=== PATIENT | male | born 1950 | race Caucasian/White ===

== ENCOUNTER 2023-07-29 12:56 | Outpatient (RCR) | payer MEDICARE, OTHER, SELFPAY | END 2023-07-29 23:59 | disposition home or self-care (01) | LOC: RPT 12:56 | PROVIDERS: ATTENDING PHYSICIAN Student in an Organized Health Care Education/Training Program; FAMILY PHYSICIAN Internal Medicine | DX: S86.011D Strain of right Achilles tendon, subsequent encounter (principal); Z73.6 Limitation of activities due to disability | CPT/HCPCS: 97110; 97162 ==

== ENCOUNTER → 2023-08-20 06:28 | Day surgery (SDC) | payer MEDICARE, OTHER, SELFPAY ==
[2023-08-20 08:00] LABS: Glucose - Point of Care 130 mg/dl (70-99)
== END ==
LOC: GI 06:28
PROVIDERS: ATTENDING PHYSICIAN Internal Medicine Gastroenterology
DX: K31.7 Polyp of stomach and duodenum (principal); R10.13 Epigastric pain; K31.89 Other diseases of stomach and duodenum
CPT/HCPCS: 43251; 88305; 82962; 88342

== ENCOUNTER 2023-08-25 11:00 | Outpatient (RCR) | payer MEDICARE, OTHER, SELFPAY | END 2023-08-25 23:59 | disposition home or self-care (01) | LOC: RPT 11:00 | PROVIDERS: ATTENDING PHYSICIAN Student in an Organized Health Care Education/Training Program; FAMILY PHYSICIAN Internal Medicine | DX: S86.011D Strain of right Achilles tendon, subsequent encounter (principal); Z73.6 Limitation of activities due to disability | CPT/HCPCS: 97110; 97112; 97116; 97530 ==

== ENCOUNTER 2023-09-22 14:02 | Outpatient (RCR) | payer MEDICARE, OTHER, SELFPAY | END 2023-09-22 23:59 | disposition home or self-care (01) | LOC: RPT 14:02 | PROVIDERS: ATTENDING PHYSICIAN Student in an Organized Health Care Education/Training Program; FAMILY PHYSICIAN Internal Medicine | DX: S86.011D Strain of right Achilles tendon, subsequent encounter (principal); Z73.6 Limitation of activities due to disability; R26.89 Other abnormalities of gait and mobility | CPT/HCPCS: 97110; 97530 ==

== ENCOUNTER 2023-10-22 10:54 | Outpatient (RCR) | payer MEDICARE, OTHER, SELFPAY | END 2023-10-22 23:59 | disposition home or self-care (01) | LOC: RPT 10:54 | PROVIDERS: ATTENDING PHYSICIAN Student in an Organized Health Care Education/Training Program; FAMILY PHYSICIAN Internal Medicine | DX: S86.011D Strain of right Achilles tendon, subsequent encounter (principal); Z73.6 Limitation of activities due to disability; R26.89 Other abnormalities of gait and mobility; M62.81 Muscle weakness (generalized) | CPT/HCPCS: 97110; 97112; 97530 ==

== ENCOUNTER 2023-11-25 11:19 | Outpatient (RCR) | payer MEDICARE, OTHER, SELFPAY | END 2023-11-25 23:59 | disposition home or self-care (01) | LOC: RPT 11:19 | PROVIDERS: ATTENDING PHYSICIAN Student in an Organized Health Care Education/Training Program; FAMILY PHYSICIAN Internal Medicine | DX: S86.011D Strain of right Achilles tendon, subsequent encounter (principal); Z73.6 Limitation of activities due to disability | CPT/HCPCS: 97110; 97112; 97116; 97530 ==

== ENCOUNTER 2023-12-15 14:51 | Outpatient (RCR) | payer MEDICARE, OTHER, SELFPAY | END 2023-12-16 07:26 | disposition home or self-care (01) | LOC: RPT 14:51 | PROVIDERS: ATTENDING PHYSICIAN Student in an Organized Health Care Education/Training Program; FAMILY PHYSICIAN Internal Medicine | DX: S86.011D Strain of right Achilles tendon, subsequent encounter (principal) | CPT/HCPCS: 97110; 97112 ==

== ENCOUNTER → 2024-04-01 09:42 | Outpatient (REF) | payer MEDICARE, OTHER, SELFPAY | LOC: RAD 09:42 | PROVIDERS: ATTENDING PHYSICIAN Physical Medicine & Rehabilitation; FAMILY PHYSICIAN Internal Medicine | DX: S29.9XXA Unspecified injury of thorax, initial encounter (principal); M54.6 Pain in thoracic spine; W19.XXXA Unspecified fall, initial encounter; M47.814 Spondylosis without myelopathy or radiculopathy, thoracic region; R07.81 Pleurodynia | CPT/HCPCS: 71101; 72072 ==

== ENCOUNTER → 2024-10-21 14:04 | Outpatient (REF) | payer MEDICARE, OTHER, SELFPAY | LOC: RAD 14:04 | PROVIDERS: ATTENDING PHYSICIAN Internal Medicine | DX: E11.9 Type 2 diabetes mellitus without complications (principal); M50.30 Other cervical disc degeneration, unspecified cervical region; I10 Essential (primary) hypertension; R26.81 Unsteadiness on feet | CPT/HCPCS: 70450 ==

== ENCOUNTER → 2025-03-26 07:11 | Outpatient (REF) | payer MEDICARE, OTHER, SELFPAY | LOC: MRI 3T 07:11 | PROVIDERS: ATTENDING PHYSICIAN Psychiatry & Neurology Neurology; FAMILY PHYSICIAN Internal Medicine | DX: M54.12 Radiculopathy, cervical region (principal) | CPT/HCPCS: 72141; 72148 ==

== ENCOUNTER 2025-03-27 14:09 | Outpatient (RCR) | payer MEDICARE, OTHER, SELFPAY | END 2025-03-27 23:59 | disposition home or self-care (01) | LOC: RPT 14:09 | PROVIDERS: ATTENDING PHYSICIAN Psychiatry & Neurology Neurology; FAMILY PHYSICIAN Internal Medicine | DX: M54.12 Radiculopathy, cervical region (principal); R26.81 Unsteadiness on feet; R26.89 Other abnormalities of gait and mobility; G89.29 Other chronic pain; R29.6 Repeated falls | CPT/HCPCS: 97010; 97110; 97112; 97140; 97162; 97535 ==

== ENCOUNTER 2025-04-24 07:48 | Outpatient (RCR) | payer MEDICARE, OTHER, SELFPAY | END 2025-04-24 23:59 | disposition home or self-care (01) | LOC: RPT 07:48 | PROVIDERS: ATTENDING PHYSICIAN Psychiatry & Neurology Neurology; FAMILY PHYSICIAN Internal Medicine | DX: M54.12 Radiculopathy, cervical region (principal); R26.81 Unsteadiness on feet; R26.89 Other abnormalities of gait and mobility; G89.29 Other chronic pain; R29.6 Repeated falls | CPT/HCPCS: 97010; 97110; 97112; 97140 ==

== ENCOUNTER 2025-05-17 12:04 | Outpatient (RCR) | payer MEDICARE, OTHER, SELFPAY | END 2025-05-26 23:59 | disposition home or self-care (01) | LOC: RPT 12:04 | PROVIDERS: ATTENDING PHYSICIAN Psychiatry & Neurology Neurology; FAMILY PHYSICIAN Internal Medicine | DX: M54.12 Radiculopathy, cervical region (principal); R26.81 Unsteadiness on feet; R26.89 Other abnormalities of gait and mobility; G89.29 Other chronic pain; R29.6 Repeated falls | CPT/HCPCS: 97010; 97110; 97140 ==